=== PATIENT | male | born 1985 | race Caucasian/White ===

== ENCOUNTER 2022-05-07 14:50 | Emergency (ER) | payer SELFPAY ==
--- NOTE | 2022-05-07 14:56 | NUR ---
PATIENT LEFT WITHOUT BEING SEEN BY DR. KILGORE. NO FURTHER CARE PROVIDED FOR PATIENT.
--- NOTE | 2022-05-07 14:57 | NUR ---
URBANO N/A CLOVER RICE
--- NOTE | 2022-05-07 15:07 | NUR ---
1501-2ND CALL CLOVER RICE N/A [id number] CALL CLOVER RICE N/A
== END 2022-05-07 14:57 | disposition left against medical advice (07) ==
LOC: MED 14:50
DX: S41.119A Laceration without foreign body of unspecified upper arm, initial encounter (principal); Z53.21 Procedure and treatment not carried out due to patient leaving prior to being seen by health care provider; X58.XXXA Exposure to other specified factors, initial encounter; Y93.89 Activity, other specified; Y92.89 Other specified places as the place of occurrence of the external cause; Y99.8 Other external cause status